=== PATIENT | male | born 1960 | race Caucasian/White ===

== ENCOUNTER 2023-12-15 18:53 | Emergency (ER) | payer OTHER, SELFPAY ==
[2023-12-15 19:00] VITALS: BP 160/104
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
[2023-12-15 22:58] VITALS: BP 155/95
== END 2023-12-15 23:00 | disposition home or self-care (01) ==
LOC: EMR 18:53
PROVIDERS: EMERGENCY PHYSICIAN Emergency Medicine; FAMILY PHYSICIAN Student in an Organized Health Care Education/Training Program
DX: S13.4XXA Sprain of ligaments of cervical spine, initial encounter (principal); S46.912A Strain of unspecified muscle, fascia and tendon at shoulder and upper arm level, left arm, initial encounter; V43.53XA Car driver injured in collision with pick-up truck in traffic accident, initial encounter; R51.9 Headache, unspecified; I10 Essential (primary) hypertension; M50.10 Cervical disc disorder with radiculopathy, unspecified cervical region; Y99.0 Civilian activity done for income or pay
CPT/HCPCS: 99284; 70450; 72125; 93005